=== PATIENT | female | born 1945 | race Caucasian/White ===

== ENCOUNTER 2019-08-05 15:45 | Outpatient (CLI) | payer MEDICARE, OTHER ==
[~2019-08-05] VITALS: Ht 162.6 cm; Wt 62.6 kg
[~2019-08-05 15:45] MED LIST: ADV50250 INH; ALEN70TA3 PO; CLON0.252 PO; COMBIVENT INH; EZET1TAB24 PO; METO25TA6 PO; MONT10TA21 PO; THEO200T22 PO; TIOT18CA7 INH; ZESTRIL PO
[2019-08-05 16:15] LABS: TOTAL HEMOGLOBIN 12.9 G/dl (12.0-16.0)
[2019-08-05] MEDS ORDERED: albuterol 2.5 MG/3 ML nebule NEB PRN (16:30)
== END 2019-08-05 23:59 | disposition home or self-care (01) ==
LOC: RT 15:45
PROVIDERS: ATTEND Internal Medicine Pulmonary Disease
DX: J44.9 Chronic obstructive pulmonary disease, unspecified (principal); J45.998 Other asthma; I10 Essential (primary) hypertension
CPT/HCPCS: 85018; 94060; 94727; 94729; 94760

== ENCOUNTER 2023-06-15 07:46 | Emergency (ER) | payer MEDICARE, SELFPAY ==
[~2023-06-15] VITALS: Ht 165.1 cm; Wt 59.1 kg
[~2023-06-15 07:46] MED LIST changes: -ALEN70TA3 PO; +ALEN70TA85 PO; +LOP25T PO; -METO25TA6 PO; +MONT-48 PO; -MONT10TA21 PO
[2023-06-15 08:14] VITALS: BP 155/61; PULSE 92; RESP 16; TEMP 99.2; O2SAT 95
[2023-06-15] MEDS ORDERED: NIRM1TAB PO (09:47)
[2023-06-19] MEDS ORDERED: IPRA4AER INH (23:19)
[2023-06-19] MEDS ORDERED: ATOR20TA66 PO (23:19)
[2023-06-19] MEDS ORDERED: QUET50TA24 PO (23:19)
[2023-06-19] MEDS ORDERED: IRBE1TAB33 PO (23:19)
[2023-06-19] MEDS ORDERED: BUDE10.7 IH (23:19)
[2023-06-20] MEDS ORDERED: DOXY100T2 PO (01:27)
[2023-06-20] MEDS ORDERED: METO25TA6 PO (12:55)
== END 2023-06-15 11:04 | disposition home or self-care (01) ==
LOC: ER 07:46
DX: U07.1 COVID-19 (principal); J44.9 Chronic obstructive pulmonary disease, unspecified; Z88.1 Allergy status to other antibiotic agents; Z79.899 Other long term (current) drug therapy
CPT/HCPCS: 36415; 71045; 87811; 99284

== ENCOUNTER 2025-09-19 10:21 | Emergency (ER) | payer MEDICARE, OTHER ==
[~2025-09-19] VITALS: Ht 165.1 cm; Wt 55.4 kg
[~2025-09-19 10:21] MED LIST changes: -ADV50250 INH; +AMLO5TAB16 PO; +ATOR20TA66 PO; +BUDE10.7 IH; -CLON0.252 PO; -COMBIVENT INH; +DEXA2TAB PO; -EZET1TAB24 PO; +IPRA4AER INH; -LOP25T PO; +LOSA100T58 PO; +METO25TA6 PO; +POTA-207 PO; +QUET50TA24 PO; -THEO200T22 PO; -TIOT18CA7 INH; -ZESTRIL PO
--- NOTE | 2025-09-19 10:42 | ELECTROCARDIOGRAPH REPORT ---
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 Armando Matthews Measurements Intervals [place] Rate: 87 P: 32 OR: 123 QRS: 20 QRSD: 87 T: 59 QT: 330 QTc: 397 Interpretive Statements Sinus rhythm Abnormal R-wave progression, early transition Electronically Signed On 09-22-2025 21:15:[address] Armando Matthews Please click the below link to view image of tracing.
--- NOTE | 2025-09-19 10:59 | RADIOLOGY REPORT ---
AP portable chest Comparison: 05/2023 CLINICAL INDICATION: CP FINDINGS: Heart size is normal. No infiltrates or effusions. No bony thoracic abnormalities. IMPRESSION: 1. No acute cardiopulmonary pathology
[2025-09-19 11:22] LABS: MEAN PLATELET VOLUME 8.2 FL (7.4-10.4); RED CELL DISTRIBUTION WIDTH 14.5 % (11.5-14.5)
[2025-09-19 11:40] LABS: CREATININE 0.82 MG/DL (0.40-0.90); PRO BRAIN NATRIURETIC PEPTIDE 482 PG/ML (0-450); TOTAL CARBON DIOXIDE 27.9 MMOL/L (24-32); eCRCL 49 ML/MIN; eGFR 67 ML/MIN
[2025-09-19] MEDS: ipratropium/albuterol 3ml nebule NEB ONE (13:04)
[2025-09-19 13:05] VITALS: PULSE 85; RESP 16; O2SAT 96
[2025-09-19 13:11] VITALS: PULSE 85; RESP 18; O2SAT 99
--- NOTE | 2025-09-19 13:55 | Physician Documentation ---
History of Present Illness ~ Chief Complaint: Shortness of Breath Stated Complaint: SOB/ASTHMA Time Seen by MD: 13:45 OK to notify your PCP?: Yes Primary Medical Doctor: MALVIN ARGUETA TREVOR Source: patient Mode of Arrival: POV Exam Limitations: no limitations HPI This is a 71-year-old female who comes in complaining of shortness of breath. The patient has a well documented history of COPD and uses rescue inhalers as well as stabilizing inhaler a hold nebulizer. She states with a past couple of days she has had increased shortness of breath. She states it is has been with a cough however it is dry nonproductive. Denies fever or chest pain. States the shortness of breath that has mostly with the exertion and not as bad when she is sitting still. Medication Reconciliation Allergies: Coded Allergies: levofloxacin (Verified Allergy, Intermediate, FLUSHING, RASH, 06/19/23) PT RECEIVED 50MG BENADRYL PRIOR TO ADMINISTRATION amoxicillin trihydrate (Unverified Allergy, Unknown, 06/19/23) cefaclor (Unverified Allergy, Unknown, 06/19/23) clarithromycin (Unverified Allergy, Unknown, 06/19/23) escitalopram oxalate (Unverified Allergy, Unknown, 06/19/23) moxifloxacin HCl (Verified Allergy, Unknown, 06/19/23) potassium clavulanate (Unverified Allergy, Unknown, 01/28/14) vancomycin HCl (Verified Allergy, Unknown, 01/28/14) Scheduled Alendronate Sodium (Fosamax), 70 MG PO Q7D, (Reported) Amlodipine Besylate (Amlodipine Besylate), 1 TAB PO DAILY Atorvastatin Calcium (Atorvastatin Calcium), 1 TAB PO DAILY, (Reported) Budesonide/Glycopyr/Formoterol (Breztri Aerosphere Inhaler), 2 PUFFS IH BID, (Reported) Dexamethasone (Dexamethasone), 2 TAB PO DAILY Ipratropium/Albuterol Sulfate (Combivent Respimat Inhal [place]), 1 PUFFS INH QID, (Reported) Losartan Potassium (Losartan Potassium), 1 TAB PO DAILY Metoprolol Tartrate (Metoprolol Tartrate), 1 TAB PO DAILY, (Reported) Montelukast Sodium (Singulair), 10 MG PO DAILY, (Reported) Potassium Chloride* (K-Dur*), 1 TAB PO DAILY Quetiapine Fumarate (Quetiapine Fumarate), 1 TAB PO HS, (Reported) Past Medical History Past Medical History: Arrhythmia, Asthma, COPD, Anxiety Alcohol Use: Occasionally Drug Use: none Lives with: S/O Lives In: Home Physical Exam Vital Signs: Temperature: 98.0, Source: Oral, Heart Rate: 88, Respiratory Rate: 20, BP: 147/93, Pulse Oximetry: 100, Weight: 55.400 Pulse Oximetry Reflects: adequate oxygenation General Appearance: alert, WD/WN, no apparent distress Respiratory Accessory muscle use or retractions. The patient has wheezes throughout without crackles or rales. There is decreased air movement throughout. Cardiovascular Rubs, gallops or murmurs. No peripheral edema, cyanosis or clubbing of the extremities. 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 (09/19/25 13:50) Medications Received in ER Medications (Trade) Dose Ordered Sig/Bronson Route PRN Reason Start Time Stop Time Status Last Admin Dose Admin (ipratrop/ albuterol 0.5-3(2.5) MG/3ml nebule) 3 ml ONCE ONCE NEB 09/19/25 10:35 09/19/25 10:36 DC 09/19/25 13:04 3 ML (Decadron 10mg/ ml inj) 10 mg ONCE STAT IM 09/19/25 13:49 09/19/25 13:51 DC 09/19/25 14:04 10 MG (Proventil 2.5 MG/3ML nebule) 2.5 mg ONCE ONCE NEB 09/19/25 13:50 09/19/25 13:56 DC 09/19/25 14:04 2.5 MG Vital Signs 09/16/25 09/19/25 09/19/25 09/19/25 13:32 10:26 12:51 13:05 Temp 97.8 Pulse 94 85 Resp 24 24 16 B/P (MAP) 167/131 Pulse Ox 96 96 O2 Delivery Room Air Room Air* O2 Flow Rate 0 FiO2 21 09/19/25 09/19/25 09/19/25 09/19/25 13:11 13:19 14:05 14:11 Temp 98.0 Pulse 85 88 93 92 Resp 18 20 16 16 B/P (MAP) 147/93 (111) Pulse Ox 99 100 94 O2 Delivery Room Air* Room Air* Room Air O2 Flow Rate 0 0 0.0 FiO2 21 21 09/19/25 14:45 Temp 97.7 Pulse 95 Resp 18 B/P (MAP) 147/60 (89) Pulse Ox 95 Laboratory Tests Test 09/19/25 10:46 09/19/25 12:23 White Blood Count 7.2 Red Blood Count 4.40 Hemoglobin 12.6 Hematocrit 38.3 Mean Corpuscular Volume 87.1 Mean Corpuscular Hemoglobin 28.7 Mean Corpuscular Hemoglobin Concent 32.9 L Red Cell Distribution Width 14.5 Platelet Count 271 Mean Platelet Volume 8.2 Neutrophils (%) (Auto) 81.2 H Lymphocytes (%) (Auto) 9.7 L Monocytes (%) (Auto) 7.2 Eosinophils (%) (Auto) 0.6 Basophils (%) (Auto) 1.3 H Neutrophils # (Auto) 5.9 Lymphocytes # (Auto) 0.7 L Monocytes # (Auto) 0.5 Eosinophils # (Auto) 0.0 Basophils # (Auto) 0.1 CBC Comment Sodium Level 140 Potassium Level 3.8 Chloride Level 104 Carbon Dioxide Level 27.9 Anion Gap 8 Blood Urea Nitrogen 11 Creatinine 0.82 Estimated GFR/1.73 m2 67 BUN/Creatinine Ratio 13.4 Glucose Level 101 Calcium Level 9.1 Troponin I High Sensitivity 9 8 Pro-B-Type Natriuretic Peptide 482 H Albumin 3.6 Chemistry Comments Troponin I High Sens Percent Delta 11 Troponin I Hi Sens Absolute Change -1 Medical Decision Making Additional information obtaine: N/A Findings A cardiac workup was initiated through triage which was all essentially negative. There is a slight elevation of the BNP but not significant. The patient has not no known history of congestive heart failure in no edema of the lower extremities. She has a very well documented history of COPD and asthma he states that is he was young child. We are gave the patient DuoNeb treatments x2 and Decadron 10 mg IM. After which I re-evaluated the patient and she states overall she feels much better. Her lungs still have an occasional wheeze however she is much improved and moving air better. Nothing to indicate pneumonia either on the physical examination or workup. I discussed this with the patient and we will discharge her home with a prescription for prednisone 50 mg once a day for five days and I continue with a home nebulizer treatments. Follow up with the primary care physician for recheck in the next one or two day s and return to the ER for any worsening or concerning symptoms. Heart Score: 2 Differential Dx:Considerations: Include: anxiety, asthma, bronchitis, cardiogenic shock, CHF, COPD, dysrhythmia, hypertension, accelerated, hypertension, essential, hypertension, malignant, hyperventilation, hyponatremia, myocardial infarction, panic attack, pneumonia, pneumonitis, pneumothorax, PSVT, pulmonary embolism, respiratory distress, respiratory failure, sinusitis, upper resp. infection, other Additional Infomation COPD exacerbation. URI. Pneumonia. Departure Disposition: HOME / SELF CARE / HOMELESS Impression: Primary Impression: Acute exacerbation of chronic obstructive airways disease Condition: Stable Discharge Instructions: COPD and Physical Activity Additional Instructions: Take the prednisone as prescribed and continue with your home inhalers. Follow up with the primary care physician for recheck in the next one or two days and return to the ER for any worsening or concerning symptoms Referrals: NO PRIMARY CARE PROVIDER (PCP) Prescriptions Prednisone (Prednisone) 50 Mg Tablet 1 TAB PO DAILY for 4 Days, #4 TAB 0 Refills Prov: BIJAN WAKEFIELD 09/19/25 Signature Scribe Signature: No scribe Attestation: The note accurately reflects work and decisions made by me.Bijan PEREZ 09/19/25 15:00 BIJAN WAKEFIELD Sep 19, 2025 13:55
[2025-09-19] MEDS: albuterol 2.5 MG/3 ML nebule NEB ONE (14:04)
[2025-09-19] MEDS: dexamethasone sod phosphate 10mg/ml inj IM STA (14:04)
[2025-09-19 14:05] VITALS: PULSE 93; RESP 16; O2SAT 94
[2025-09-19 14:11] VITALS: PULSE 92; RESP 16
[2025-09-19 14:45] VITALS: BP 147/60; PULSE 95; RESP 18; TEMP 97.7; O2SAT 95
[2025-09-19] MEDS ORDERED: PRED50TA PO (15:00)
== END 2025-09-19 15:21 | disposition home or self-care (01) ==
LOC: ER 10:22
DX: J44.1 Chronic obstructive pulmonary disease with (acute) exacerbation (principal); F41.9 Anxiety disorder, unspecified; Z88.1 Allergy status to other antibiotic agents; Z88.8 Allergy status to other drugs, medicaments and biological substances; Z79.899 Other long term (current) drug therapy; Z79.52 Long term (current) use of systemic steroids; Z72.89 Other problems related to lifestyle
CPT/HCPCS: 36415; 71045; 80048; 83880; 84484; 85025; 93005; 94640; 94760; 96372; 99285; J1100